=== PATIENT | female | born 1950 | race Caucasian/White ===

== ENCOUNTER 2018-10-02 11:24 | Day surgery (SDC) | payer BC, SELFPAY ==
--- NOTE | 2018-09-25 14:24 | PM.PREOP ---
Pre-operative Note Interval Note History & Physical reviewed/Exam performed by Physician: Yes Changes to H&P: No
--- NOTE | 2018-09-25 14:27 | P.OP_ITS ---
Operative Date/Time/Diagnoses Date of procedure: 10/02/18 Time of procedure: 12:45 Procedure & Clinicians Procedure: Preoperative diagnoses: 1. Advanced nuclear sclerotic cataract 2. Astigmatism which is to be corrected with a toric intraocular lens implant. 3. Ptosis. Postoperative diagnoses: 1. Cataract removal with phacoemulsification with toric posterior chamber intraocular lens implant placed. Procedure: Phacoemulsification with posterior chamber toric intraocular lens implant. Surgeon: Esther Meade MD Complications: None Specimen: None Implant: [id number]+12.5 [place] 085 Blood loss: None Anesthesia: Retrobulbar with monitored standby Description of procedure: Patient presents with a complaint of decreased vision due to cataract which is affecting activities of daily living. The patient wants surgery to improve vision and astigmatism. The patient was taken to the operating room and proparacaine drops placed. Indelible ink costello were placed at the 90 and 180 degree meridian. The patient was placed on the operating room table and given IV sedation. A retrobulbar block insert consisting of 6 cc of 2% xylocaine without epinephrine mixed half and half with 0.5% Marcaine with 1 cc of hyaluronidase added is placed between the medial and lateral 1/3 of the inferior orbital rim. Lid akinesia is obtain with 1% xylocaine with epinephrine infiltrated along the lid margin. The eye is manually massaged for 30 sec, prepped using Betadine solution, and draped in the usual sterile fashion. Temporal approach was made, a 1 mm side-port incision was made 90? from the proposed corneal wound. Phenylephrine 1.5% mixed with 1% xylocaine 0.2 cc was placed into the anterior chamber. Viscoat followed by Jarret was then placed. A 2.6 mm clear incision with a 2.6 mm blade was placed at the 170 degree meridian. A 360 degree capsulorrhexis style capsulotomy was then performed with a cystitome needle on a [place]on. Hydrodelineation and hydrodissection were performed. The phacoemulsification unit is introduced, and sculpting used to groove the central lens. It is then removed in chopping mode. Epi nucleus is removed with epinuclear mode and irrigation aspiration was used to remove the peripheral cortex. The posterior capsule is polished. The intraocular lens is selected, inspected, power confirmed, and placed in the posterior chamber at the desired meridian of 85?. The pupil was not constricted. The wound was stromally hydrated and tested for leaks, there was none and it was left sutureless. Vigamox 0.1 cc was placed into the anterior chamber. Kenalog 0.2 cc was placed in the superior subconjunctival space. A drop of antibiotic and was placed and the eye was patched and shielded. The patient was stable and returned to the recovery room in excellent condition. Dictated by: Esther Meade MD Copy to: [facility]
[2018-10-02] MEDS: PROPARACAINE 0.5% OPHTH SOL 2 DROPS EYE-OP ×2 (12:28→13:46)
[2018-10-02 12:37] VITALS: BP 132/55; PULSE 51; RESP 16; TEMP 36.4; O2SAT 100; BMI 23.0
[2018-10-02] MEDS: CATARACT EYE COMPOUND (10 DROPS/SYRINGE) 3 DROPS EYE-OP (12:45)
[2018-10-02] MEDS: CHONDROIDTIN/SOD HYALURONATE 1.05 ML SYRINGE INTRAOCULA (13:41)
[2018-10-02] MEDS: BALANCED SALT IRRIG SOLN NO.2 15 ML IRR (13:41)
[2018-10-02] MEDS: NEOMYCIN/POLY/DEX OPHTH OINT 1 APPLIC EYE-LEFT (13:42)
[2018-10-02] MEDS: MOXIFLOXACIN OPHTH DROPS 3 ML BOTTLE 2 DROPS INJ (13:42)
[2018-10-02] MEDS: LIDOCAINE 1% W/EPI INJ 20 ML INJ (13:42)
[2018-10-02] MEDS: HYALURONATE SODIUM 10 MG/ML SYRINGE INJ (13:42)
[2018-10-02] MEDS: OFLOXACIN 0.3% OPHTH 5 ML 2 DROPS EYE-LEFT (13:43)
[2018-10-02] MEDS: PHENYLEPHRINE/LIDOCAINE VIAL (OR) 0.2 ML EYE-OP (13:43)
[2018-10-02] MEDS: TRIAMCINOLONE 50 MG/5 ML VIAL INJ (13:44)
[2018-10-02] MEDS: LIDOCAINE 2% 4 ML, BUPIVACAINE 0.5% (PF) 4 ML, HYALURONIDASE 150 UNIT INJ (13:44)
[2018-10-02] MEDS: BALANCED SALT IRRIG SOLN NO.2 500 ML, EPINEPHrine 1 MG IRR (13:45)
[2018-10-02 14:10] VITALS: BP 131/56; PULSE 54; RESP 16; TEMP 37; O2SAT 100
== END 2018-10-02 14:30 | disposition home or self-care (01) ==
LOC: OR 11:27
PROVIDERS: PCP Family Medicine; Visit Provider Ophthalmology
DX: H25.12 Age-related nuclear cataract, left eye (principal); H52.202 Unspecified astigmatism, left eye
CPT/HCPCS: J0171; J2704; J3301; J3470; V2787

== ENCOUNTER 2018-10-16 10:03 | Day surgery (SDC) | payer BC, SELFPAY ==
--- NOTE | 2018-10-10 17:09 | PM.PREOP ---
Pre-operative Note Interval Note History & Physical reviewed/Exam performed by Physician: Yes Changes to H&P: No
--- NOTE | 2018-10-16 08:19 | P.OP_ITS ---
Operative Date/Time/Diagnoses Date of procedure: 10/16/18 Time of procedure: 11:45 Procedure & Clinicians Procedure: Preoperative diagnoses: 1. Nuclear sclerotic cataract 2. Astigmatism which is to be corrected with a toric intraocular lens implant. 3. Allergy to unknown topical drop after left cataract surgery. Postoperative diagnoses: 1. Cataract removal with phacoemulsification with toric posterior chamber intraocular lens implant placed. Procedure: Phacoemulsification with posterior chamber toric intraocular lens implant. Surgeon: Esther Meade MD Complications: None Specimen: None Implant: ZCT 300 +13.0 [place] 89 degrees Blood loss: None Anesthesia: Retrobulbar with monitored standby Description of procedure: Patient presents with a complaint of decreased vision due to cataract which is affecting activities of daily living. The patie nt wants surgery to improve vision and astigmatism. The patient was taken to the operating room and proparacaine drops placed. Indelible ink costello were placed at the 90 and 180 degree meridian. The patient was placed on the operating room table and given IV sedation. A retrobulbar block insert consisting of 6 cc of 2% xylocaine without epinephrine mixed half and half with 0.5% Marcaine with 1 cc of hyaluronidase added is placed between the medial and lateral 1/3 of the inferior orbital rim. Lid akinesia is obtain with 1% xylocaine with epinephrine infiltrated along the lid margin. The eye is manually massaged for 30 sec, prepped using Betadine solution, and draped in the usual sterile fashion. Temporal approach was made, a 1 mm side-port incision was made 90? from the proposed corneal wound. Phenylephrine 1.5% mixed with 1% xylocaine 0.2 cc was placed into the anterior chamber. Viscoat followed by Jarret was then placed. A 2.6 mm clear incision with a 2.6 mm blade was placed at the 170 degree meridian. A 360 degree capsulorrhexis style capsulotomy was then performed with a cystitome needle on a Healon. Hydrodelineation and hydrodissection were performed. The phacoemulsification unit is introduced, and sculpting used to groove the central lens. It is then removed in chopping mode. Epi nucleus is removed with epinuclear mode and irrigation aspiration was used to remove the peripheral cortex. The posterior capsule is polished. The intraocular lens is selected, inspected, power confirmed, and placed in the posterior chamber at the desired meridian of 89 degrees..The pupil was not constricted. The wound was stromally hydrated and tested for leaks, there was none and it was left sutureless. Vigamox 0.1 cc was placed into the anterior chamber. Kenalog 0.2 cc was placed in the superior subconjunctival space. A drop of antibiotic and was placed and the eye was patched and shielded. The patient was stable and returned to the recovery room in excellent condition. Dictated by: Esther Meade MD Copy to: [facility]
[2018-10-16] MEDS: PROPARACAINE 0.5% OPHTH SOL 2 DROPS EYE-OP (10:50)
[2018-10-16 10:51] VITALS: BP 140/60; PULSE 53; RESP 16; TEMP 36.3; O2SAT 100; BMI 23.0
[2018-10-16] MEDS: CATARACT EYE COMPOUND (10 DROPS/SYRINGE) 3 DROPS EYE-OP (10:52)
[2018-10-16] MEDS: LIDOCAINE 1% W/EPI INJ 20 ML INJ (12:50)
[2018-10-16] MEDS: HYALURONATE SODIUM 10 MG/ML SYRINGE INJ (12:50)
[2018-10-16] MEDS: CHONDROIDTIN/SOD HYALURONATE 1.05 ML SYRINGE INTRAOCULA (12:50)
[2018-10-16] MEDS: BALANCED SALT IRRIG SOLN NO.2 15 ML IRR (12:50)
[2018-10-16] MEDS: MOXIFLOXACIN OPHTH DROPS 3 ML BOTTLE 2 DROPS INJ (12:51)
[2018-10-16] MEDS: NEOMYCIN/POLY/DEX OPHTH OINT 1 APPLIC EYE-RIGHT (12:51)
[2018-10-16] MEDS: OFLOXACIN 0.3% OPHTH 5 ML 2 DROPS EYE-RIGHT (12:51)
[2018-10-16] MEDS: TRIAMCINOLONE 50 MG/5 ML VIAL INJ (12:52)
[2018-10-16] MEDS: PHENYLEPHRINE/LIDOCAINE VIAL (OR) 0.2 ML EYE-OP (12:52)
[2018-10-16] MEDS: BALANCED SALT IRRIG SOLN NO.2 500 ML, EPINEPHrine 1 MG IRR (12:53)
[2018-10-16] MEDS: LIDOCAINE 2% 4 ML, BUPIVACAINE 0.5% (PF) 4 ML, HYALURONIDASE 150 UNIT INJ (12:54)
[2018-10-16 13:37] VITALS: BP 137/58; PULSE 46; RESP 14; TEMP 36.7; O2SAT 99
== END 2018-10-16 13:50 | disposition home or self-care (01) ==
LOC: OR 10:07
PROVIDERS: PCP Family Medicine; Visit Provider Ophthalmology
DX: H25.11 Age-related nuclear cataract, right eye (principal); H52.201 Unspecified astigmatism, right eye
CPT/HCPCS: J0171; J2704; J3301; J3470; V2787

== ENCOUNTER → 2023-04-10 15:35 | Outpatient (ROUT) | payer BC, SELFPAY | PROVIDERS: PCP Family Medicine; Visit Provider Dermatology | DX: D48.5 Neoplasm of uncertain behavior of skin (principal) | CPT/HCPCS: 87070; 87075; 87205 ==

== ENCOUNTER → 2025-02-03 12:43 | Outpatient (CLI) | payer BC, SELFPAY ==
--- NOTE | 2025-02-03 12:45 | DI.RAD.S_ITS ---
PROCEDURE: XR DEXA AXIAL SKELETON INDICATIONS: SCREENING FOR OSTEOPOROSIS/POST MENOPAUSAL COMPARISON: None. FINDINGS: Lumbar Spine: Bone mineral density 0.701 g/cm2, T score -3.0. Left Femoral Neck: Bone mineral density 0.578 g/cm2, T score -0.3. Left Hip: Bone mineral density 0.700 g/cm2, T score -0.1. Fracture Risk Calculation (when applicable): 10-year fracture risk of a major osteoporotic fracture 16 percent and of a hip fracture 5.0 percent. IMPRESSION: Osteoporosis Follow-up guidelines as follows: Osteoporosis: Consider a repeat DEXA and Vertebral Fracture Assessment (VFA) exam in 2 years or sooner if medically necessary, to reassess this patient's status. Osteopenia: Consider a repeat DEXA in 2-3 years to reassess this patient's status, or if there is a new clinical indication. Normal: Consider a repeat DEXA in 5 years or sooner, or if there is a new clinical indication. All treatment decisions require clinical judgment and consideration of individual patient factors, including patient preferences, comorbidities, previous drug use, risk factors not captured in the FRAX model (e.g., frailty, falls, vitamin D deficiency, increased bone turnover, interval significant decline in bone density ) and possible under- or over-estimation of fracture risk by FRAX. In addition, the NOF Guide recommends that FDA-approved medical therapies be considered in postmenopausal women and men age >= 50 years with a: * Hip or vertebral (clinical or morphometric) fracture * T-score of <=-2.5 at the spine or hip * Ten-year fracture probability by FRAX of >= 3% for hip fracture or >=20% for major osteoporotic fracture. Dictated by: Niko Torres M.D. on 02/04/2025 at 8:24 Approved by: Niko Torres M.D. on 02/04/2025 at 9:10
== END ==
LOC: RAD 12:44
PROVIDERS: PCP Family Medicine; Referring Provider Family Medicine; Visit Provider Family Medicine
DX: M81.0 Age-related osteoporosis without current pathological fracture (principal); Z78.0 Asymptomatic menopausal state
CPT/HCPCS: 77080